=== PATIENT | female | born 1950 | race Caucasian/White ===

== ENCOUNTER 2020-06-30 11:08 | Emergency (ER) | payer MEDICARE, OTHER ==
[~2020-06-30] VITALS: Ht 154.9 cm; Wt 63.5 kg
[~2020-06-30 11:08] MED LIST: EFFEXOR XR37.5 MG PO; FOSAMAX70 MG PO; MULTIVITAMINS1 EAC7 PO; NAPROXEN500 MG PO; OMEPRAZOLE20 MG PO; OXYTROL FOR WO1 EACH TD; TYLENOL EXTRA500 MG PO; TYLENOL WITH C1 EACH PO
[2020-06-30] MEDS ORDERED: ONDANSETRON ODT8 MG PO (12:28)
== END 2020-06-30 12:34 | disposition home or self-care (01) ==
LOC: ED 11:08
DX: S06.0X0A Concussion without loss of consciousness, initial encounter (principal); Z87.891 Personal history of nicotine dependence; Z91.040 Latex allergy status; Z79.899 Other long term (current) drug therapy; W00.0XXA Fall on same level due to ice and snow, initial encounter
CPT/HCPCS: 70450; 99284-25

== ENCOUNTER 2020-07-21 09:20 | Emergency (ER) | payer OTHER, MEDICARE ==
[~2020-07-21] VITALS: Ht 154.9 cm; Wt 63.5 kg
[~2020-07-21 09:20] MED LIST changes: +ONDANSETRON ODT8 MG PO
--- OUTSIDE RECORDS SUMMARY | 2020-07-21 09:22 | XMS ---
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 [facility] has no Care Guidelines for this patient. [facility]12 MO[facility] NOTE: Visits indicate total known visits. ED/C VISIT TRACKING (12 MO.) [facility] COMPLAINT: - HEADACHE 06/30/2020 11:[address] [facility] TYPE: Emergency COMPLAINT: - FALL, HIT HEAD, DIZZY, NAUSEA, HEADACHE DIAGNOSES: - Other senior care (current) drug therapy - Latex allergy status - Concussion without loss of consciousness, initial encounter - Dizziness and giddiness - Personal history of nicotine dependence - Fall on same level due to ice and snow, initial encounter INPATIENT VISIT TRACKING (12 MO.) No inpatient visits to display in this time frame [email or web address]
[2020-07-21] MEDS ORDERED: FISH OIL 1,0001 EAC2 NG (09:33)
[2020-07-21] MEDS ORDERED: HYDROCODON-ACE1 EA10 PO (12:08)
== END 2020-07-21 12:21 | disposition home or self-care (01) ==
LOC: ED 09:20
DX: G44.309 Post-traumatic headache, unspecified, not intractable (principal); F07.81 Postconcussional syndrome; Z87.891 Personal history of nicotine dependence; Z91.040 Latex allergy status; Z79.899 Other long term (current) drug therapy
CPT/HCPCS: 99283; A9270